=== PATIENT | male | born 1990 | race African-American/Black ===

== ENCOUNTER 2020-11-05 03:53 | Emergency (ER) | payer SELFPAY ==
[~2020-11-05] VITALS: Ht 180.3 cm; Wt 104.0 kg
[2020-11-05 03:55] VITALS: BP 142/72
[2020-11-05] MEDS ORDERED: ACETAMINOPHEN 500MG TABLET PO ONE (04:15)
[2020-11-05] MEDS ORDERED: MAGNESIUM/ALUMINUM HYDROXIDE/SIMETHICONE 30ML UDC PO ONE (04:15)
[2020-11-05] MEDS ORDERED: VISCOUS LIDOCAINE 2% 15 ML UDC PO ONE (04:15)
[2020-11-05] MEDS ORDERED: DICYCLOMINE 10 MG/5 ML ORAL SYR PO ONE (04:15)
[2020-11-05] MEDS ORDERED: ACET-2708 MT (04:16)
== END 2020-11-05 04:34 | disposition home or self-care (01) ==
LOC: ER 03:53
DX: G89.29 Other chronic pain (principal); M54.9 Dorsalgia, unspecified; R10.9 Unspecified abdominal pain; R22.2 Localized swelling, mass and lump, trunk; R03.0 Elevated blood-pressure reading, without diagnosis of hypertension; F91.8 Other conduct disorders; Z59.0 Homelessness
CPT/HCPCS: 99283